=== PATIENT | female | born 1990 | race Native Hawaiian/Other Pacific Islander ===

== ENCOUNTER 2018-01-10 22:34 | Emergency (ER) | payer OTHER ==
[2018-01-10 22:50] VITALS: BP 110/72; PULSE 82; RESP 16; TEMP 98.2; O2SAT 98
--- NOTE | 2018-01-10 23:03 | ED PDOC ---
HPI: Headache Time Seen by Provider: 01/10/18 22:55 Chief Complaint (Nursing): Headache Chief Complaint (Provider): headache History Per: Patient Additional Complaint(s): 27 y/o female presents to emergency department for evaluation of headache ongoing for 2 weeks. Patient has slight nausea with no vomiting. She feels as if her eyes are straining especially when she is working on a computer. Patient also notices headache and eye strain when she is driving. No fever or chills. Patient has been taking Tylenol which has not helped. She was seen today at urgent care and was instructed to come to ED for CT head. Past Medical History Reviewed: Historical Data, Nursing Documentation, Vital Signs Vital Signs: Last Vital Signs Temp 98.2 F 01/10/18 22:47 Pulse 82 01/10/18 22:47 Resp 16 01/10/18 22:47 BP 110/72 01/10/18 22:47 Pulse Ox 98 01/10/18 22:47 - Medical History PMH: No Chronic Diseases - Surgical History Surgical History: No Surg Hx - Family History Family History: States: No Known Family Hx - Living Arrangements Living Arrangements: With Friends/Others - Social History Current smoker - smoking cessation education provided: No Alcohol: None Drugs: Denies - Home Medications Home Medications: Ambulatory Orders Medication Instructions Recorded Metoclopramide [Reglan] 10 mg PO Q6 PRN #20 tab 01/10/18 Naproxen [Naprosyn] 500 mg PO BID #20 tab 01/10/18 - Allergies Allergies/Adverse Reactions: Allergies Allergy/AdvReac Type Severity Reaction Status Date / Time sulfur dioxide Allergy Mild RASH Verified 01/10/18 22:51 Review of Systems ROS Statement: Except As Marked, All Systems Reviewed And Found Negative Constitutional: Negative for: Fever, Chills Eyes: Positive for: Pain (straining to eyes). Negative for: Vision Change Gastrointestinal: Negative for: Nausea, Vomiting Neurological: Positive for: Headache (x 2 weeks). Negative for: Dizziness Physical Exam - Reviewed Nursing Documentation Reviewed: Yes Vital Signs Reviewed: Yes - Physical Exam Appears: Positive for: Well, Non-toxic, No Acute Distress Skin: Positive for: Normal Color. Negative for: Rash Eye Exam: Positive for: Normal appearance, EOMI, PERRL ENT: Positive for: Normal ENT Inspection Neck: Positive for: Normal Cardiovascular/Chest: Positive for: Regular Rate, Rhythm Respiratory: Positive for: Normal Breath Sounds. Negative for: Wheezing, Respiratory Distress Neurologic/Psych: Positive for: Alert, engineering assistant II-XII (grossly intact), Oriented, Gait (steady). Negative for: Motor/Sensory Deficits, Aphasia, Facial Droop - Laboratory Results Urine POC: Negative (test refused, patient states she is certain she is not ) - ECG O2 Sat by Pulse Oximetry: 98 Pulse Ox Interpretation: Normal - Other Rad CT head X-Ray: Read By Radiologist X-Ray Interpretation: no acute findings Medical Decision Making Medical Decision Makin27 y/o with headache x 2 weeks. Plan: CT head IM toradol IM reglan Patient aware of CT results, all questions answered. Patient feels better after meds given in ED. Rx naprosyn and reglan given. Patient was advised to make appt with leather goods sales representative for vision exam, referral provided. Disposition - Clinical Impression Clinical Impression: Headache, Bilateral eye strain - Patient ED Disposition Is Patient to be Admitted: No Counseled Patient/Family Regarding: Studies Performed, Diagnosis, Need For Followup, Rx Given - Disposition Referrals: Greg Tanner MD [Staff Provider] - Disposition: Routine/Home Disposition Time: 23:51 Condition: STABLE Additional Instructions: Prescription medicines as directed as needed for headache pain. Follow-up with eye doctor soon as possible. Prescriptions: Metoclopramide [Reglan] 10 mg PO Q6 PRN #20 tab PRN Reason: Nausea/Vomiting Naproxen [Naprosyn] 500 mg PO BID #20 tab Instructions: Headache, Adult (DC), Eyestrain Forms: [employer] ([employer])
--- NOTE | 2018-01-10 23:45 | CT ---
EXAM: CT Head Without Intravenous Contrast EXAM DATE/TIME: 01/10/2018 10:54 PM CLINICAL HISTORY: 27 years old, female; Pain; Headache; Headache not specified; Additional info: Headache for 2 weeks TECHNIQUE: Axial computed tomography images of the head/brain without intravenous contrast. All CT scans at this facility use one or more dose reduction techniques, viz.: automated exposure control; ma/kV adjustment per patient size (including targeted exams where dose is matched to indication; i.e. head); or iterative reconstruction technique. Coronal and sagittal reformatted images were created and reviewed. COMPARISON: No relevant prior studies available. FINDINGS: BRAIN: No significant acute abnormality identified. No acute hemorrhage seen within the brain. No acute extra-axial fluid collections visualized. No evidence of significant mass effect within the brain. Normal pittman-white matter differentiation. VENTRICLES: No evidence of significant hydrocephalus. BONES/JOINTS: No acute fractures or other acute bony abnormality noted. SOFT TISSUES: No acute abnormality of the visualized soft tissues is seen. SINUSES: Visualized paranasal sinuses appear clear. MASTOID AIR CELLS: Mastoid air cells appear clear. IMPRESSION: - No acute findings seen within the brain. - See above for remaining findings.
== END 2018-01-11 00:14 | disposition home or self-care (01) ==
LOC: H.ER 22:34
DX: R51 Headache (principal); H57.10 Ocular pain, unspecified eye
CPT/HCPCS: 70450; 96372; 99281; J1885; J2765